=== PATIENT | male | born 1970 | race Caucasian/White ===

== ENCOUNTER 2017-10-16 12:25 | Inpatient (IN) | payer OTHER ==
[2017-10-16 13:03] VITALS: BMI 30.7
--- NOTE | 2017-10-16 16:51 | HP ---
COWS - Scale Resting Pulse: 1= [place] 81-100 Sweatin=Flushed/Facial Moisture Restless Observation: 3= Extraneous Movement Pupil Size: 0= Normal to Room Light Bone or Joint Aches: 4=Acute Joint/Muscle Pain Runny Nose/ Eye Tearin= None GI Upset > 30mins: 1= Stomach Cramp Tremor Observation: 1= Tremor [place], Not Seen Yawning Observation: 0= None Anxiety or Irritability: 2=Irritable/Anxious Goose Flesh Skin: 0=Smooth Skin COWS Score: 14 Admission [facility] Chief Complaint: WITHDRAWAL SX FROM HEROIN AND STREET METHADONE Allergies/Adverse Reactions: Allergies Allergy/AdvReac Type Severity Reaction Status Date / Time No Known Allergies Allergy Verified 10/16/17 15:45 History of Present Illness: 47 Y/O H/MALE WITH A HX OF HEROIN AND STREET METHADONE DEPENDENCE SEEKING DETOX TX. PT STAES HE WENT TO A HOSPITAL ER IN [place] A DAY OR TWO AGO FOR LEFT LEG PAIN AND WAS GIVEN XARELTO #2 TABS. PT REPORTS HE LATER WAS AT [facility] ON 10/14/17 TO 10/15/17 FOR LEFT LEG PAIN-DX DVT. PT IS CURRENTLY ON ELIQUIS 10 MG PO Q12H X 7 DAYS; THEN ELOQUIS 5 MG PO Q12H. PT STATES HE WAS MEDICATED WITH ELOQIUS AT [facility] THIS MORNING. PT HAS HIS RX IN [facility] AND WILL INSPECTOR AND MENDER THE REQUIRED PROTOCOL FOR ELIQUIS FROM [facility] AFTER DETOX. PT WANTS TO FOLLOW UP WITH HIS DOCTOR AFTER DETOX FOR MEDICAL MANAGEMENT AFTER DETOX. PT HAS SOME APPOINTMENTS SET UP FOR 10/24/17. Exam Limitations: No Limitations - Ebola screening Have you traveled outside of the country in the last 21 days: No Have you had contact with anyone from an Ebola affected area: No Have you been sick,other than usual withdrawal symptoms: No Do you have a fever: No - Review of Systems Constitutional: Chills, Night Sweats, Changes in sleep EENT: reports: Blurred Vision (WEARS GLASSES), Tearing, Nose Congestion, Dental Problems (MISSING TEETH) Respiratory: reports: No Symptoms reported Cardiac: reports: No Symptoms Reported GI: reports: Constipated, Diarrhea, Nausea, Poor Fluid Intake, Vomiting, Indigestion (GERD HX-NEXIUM) : reports: No Symptoms Reported Musculoskeletal: reports: Back Pain, Joint Pain, Muscle Pain Integumentary: reports: Dryness, Erythema (DUE TO DVT) Neuro: reports: Numbness, Tingling, Unsteady Gait (SOMETIMES) Endocrine: reports: No Symptoms Reported Hematology: reports: No Symptoms Reported Psychiatric: reports: Anxious Other Systems: Reviewed and Negative Patient History - Patient Medical History Hx Anemia: No Hx Asthma: No Hx Chronic Obstructive Pulmonary Disease (COPD): No Hx Cardiac Disorders: No Hx Hypertension: No Hx Hypercholesterolemia: Yes (HIGH TG--ON SIMVASTATIN 20 MG BUT NOT TAKEN FOR A LONG TIME.) HX Cerebrovascular Accident: No Hx Seizures: No Hx Diabetes: No Hx Gastrointestinal Disorders: Yes (GERD-NEXIUM) Hx Genitourinary Disorders: No Hx Sexually Transmitted Disorders: No (DENIES) Hx Renal Disease (ESRD): No Hx Thyroid Disease: No Hx Human Immunodeficiency Virus (HIV): No (NEGATIVE HX) Hx Hepatitis C: No Hx Depression: No Hx Suicide Attempt: No (DENIES S/I) Hx Bipolar Disorder: No Hx Schizophrenia: No - Patient Surgical History Past Surgical History: No Hx Neurologic Surgery: No Hx Cataract Extraction: No Hx Cardiac Surgery: No Hx Lung Surgery: No Hx Breast Surgery: No Hx Breast Biopsy: No Hx Abdominal Surgery: No Hx Appendectomy: No Hx Cholecystectomy: No Hx Genitourinary Surgery: No Hx Orthopedic Surgery: No Anesthesia Reaction: No - PPD History Previous Implant?: Yes Documented Results: Negative w/o proof Implanted On Prior R Admission?: No PPD to be Administered?: Yes - Reproductive History Patient is a Female of Child Bearing Age (11 -55 yrs old): Yes (MALE) - Smoking Cessation Smoking history: Current every day smoker Have you smoked in the past 12 months: Yes Aproximately how many cigarettes per day: 20 Hx Chewing Tobacco Use: No Initiated information on smoking cessation: Yes 'Breaking Loose' booklet given: 10/16/17 - Substance & Tx. History Hx Alcohol Use: Yes (OCCASIONAL BEER) Hx Substance Use: Yes (HEROIN/STREET METHADONE) Substance Use Type: Heroin Hx Substance Use Treatment: Yes (LAST TX IN [facility]) - Substances Abused Heroin Route: Inhalation Frequency: Daily Amount used: 3 bundles daily ($240) Age of first use: 37 Date of Last Use: 10/15/17 Non-Rx Methadone Route: Oral Frequency: 3-6 times per week Amount used: 70mg when used Age of first use: 47 Date of Last Use: 10/15/17 Family Disease History - Family Disease History Family Disease History: Diabetes: Grandparent, Heart Disease: Father (HTN; RUPTURED AORTA-), CA: Mother (STOMACH CA-), Other: Father [facility] - Vital Signs Vital Signs: Vital Signs - 24 hr 10/16/17 12:58 Temperature 98.7 F Pulse Rate 92 H Respiratory 20 Rate Blood Pressure 118/78 - Physical General Appearance: Yes: Moderate Distress, Irritable, Anxious HEENTM: Yes: EOMI, Normocephalic, KESHAV, Pharynx Normal Respiratory: Yes: Chest Non-Tender, Lungs Clear, Normal Breath Sounds, No Respiratory Distress Neck: Yes: Supple, Trachea in good position Breast: Yes: Breast Exam Deferred Cardiology: Yes: Regular Rhythm, Regular Rate, S1, S2 Abdominal: Yes: Normal Bowel Sounds, Non Tender Genitourinary: Yes: Other (N/C) Back: Yes: Within Normal Limits Musculoskeletal: Yes: full range of Motion, Gait Steady Extremities: Yes: Normal Range of Motion, Swelling, Calf Tenderness (RIGHT), Erythema, Inflammation Neurological: Yes: as400 developer II-XII NML intact, Fully Oriented, Alert, Motor Strength 5/5 Integumentary: Yes: Dry, Warm Lymphatic: Yes: Within Normal Limits - Diagnostic (1) Opioid dependence with withdrawal Current Visit: Yes Status: Acute (2) DVT (deep venous thrombosis) Current Visit: Yes Status: Acute Qualifiers: DVT location: lower extremity Laterality: left Comment: HOSPITALIZED 10/14/17 TO 10/15/17 FOR DVT AT [facility]. Cle[facility] for Admission [facility] - Detox or Rehab [facility] Level of Care: Medically Managed Detox Regimen/Protocol: Methadone [facility] Breath Alcohol Content Breath Alcohol Content: 0 Urine Drug Screen - Results Drug Screen Negative: No Urine Drug Screen Results: RUFUS-Cocaine, OPI-Opiates, MET-Methamphetamine, MTD- Methadone
[2017-10-16] MEDS ORDERED: guaiFENesin/D-METHORPHAN HB 10 ML UNIT-DOSE CUPS PO PRN (17:22)
[2017-10-16] MEDS ORDERED: MAG HYDROX/AL HYDROX/SIMETH 30 ML UNIT-DOSE CUP PO PRN (17:22)
[2017-10-16] MEDS ORDERED: P-EPHED 60MG/TRIPROLIDI 2.5MG TABLET PO PRN (17:22)
[2017-10-16] MEDS ORDERED: LOPERAMIDE HCL 2 MG CAPSULE PO PRN (17:22)
[2017-10-16] MEDS ORDERED: MAGNESIUM CITRATE 300 ML BOTTLE PO PRN (17:22)
[2017-10-16] MEDS ORDERED: NICOTINE POLACRILEX 4 MG GUM BC PRN (17:22)
[2017-10-16] MEDS ORDERED: MENTHOL/PHENOL 1 EACH UD MM PRN (17:22)
[2017-10-16] MEDS ORDERED: IBUPROFEN 400 MG TABLET (FP) PO PRN (17:22)
[2017-10-16] MEDS ORDERED: MAGNESIUM HYDROX 2400MG/30ML ORAL SUSPENSION 30 ML CUP PO PRN (17:22)
[2017-10-16] MEDS ORDERED: ASPIRIN 81 MG CHEWABLE TABLETS PO ONE (17:57)
[2017-10-16] MEDS ORDERED: METHADONE HCL 10 MG TABLET (FOR DETOX USE ONLY) PO ONE ×2 (19:15→23:00)
[2017-10-16] MEDS ORDERED: ASPIRIN COATED 81 MG TABLET.EC ONE (19:48)
[2017-10-16] MEDS: diazePAM 5 MG TABLET PO PRN (19:53)
[2017-10-16] MEDS: NICOTINE 21 MG/24 HOURS TOPICAL PATCH TD SCH (19:56)
[2017-10-16] MEDS ORDERED: MELATONIN 5 MG TABLETS PO PRN (22:00)
[2017-10-16] MEDS: CYCLOBENZAPRINE HCL 10 MG TABLET (FP) PO SCH (22:09)
[2017-10-16] MEDS: THIAMINE HCL 100 MG TABLET (FP) PO SCH (22:09)
[2017-10-16] MEDS: APIXABAN 5 MG TABLET PO SCH (22:10)
[2017-10-17] MEDS: diazePAM 5 MG TABLET PO PRN ×4 (05:14→20:10)
[2017-10-17] MEDS: CYCLOBENZAPRINE HCL 10 MG TABLET (FP) PO SCH ×3 (05:14→22:09)
[2017-10-17 08:13] LABS: URINE APPEARANCE TURBID; URINE BILIRUBIN NEGATIVE (<2.0 mg/dL); URINE GLUCOSE (UA) NEGATIVE (NEGATIVE); URINE KETONE NEGATIVE (NEGATIVE); URINE LEUK ESTERASE NEGATIVE (NEGATIVE); URINE NITRITE NEGATIVE (NEGATIVE); URINE PROTEIN NEGATIVE (NEGATIVE); URINE UROBILINOGEN NEGATIVE mg/dL (0.2-1.0)
[2017-10-17 08:14] LABS: URINE COLOR DK YELLOW
[2017-10-17 09:56] LABS: HEMATOCRIT 40.5 % (35.4-49); MCH 33.4 pg (25.7-33.7); MCHC 34.6 g/dl (32.0-35.9); MEAN CELL VOLUME 96.4 fl (80-96); PLATELET COUNT 158 K/MM3 (134-434); WHITE BLOOD COUNT 5.9 K/mm3 (4.0-10.0)
[2017-10-17] MEDS ORDERED: APIXABAN 5 MG TABLET PO SCH (10:00)
[2017-10-17] MEDS ORDERED: METHADONE HCL 10 MG TABLET (FOR DETOX USE ONLY) PO ONE (10:00)
[2017-10-17] MEDS: APIXABAN 5 MG TABLET PO SCH ×2 (10:10→22:09)
[2017-10-17] MEDS: PRENATAL VITAMINS W/ FOLIC ACID TABLET (FP) PO SCH (10:10)
[2017-10-17] MEDS: NICOTINE 21 MG/24 HOURS TOPICAL PATCH TD SCH (10:10)
[2017-10-17 10:37] LABS: CALCIUM 8.4 mg/dL (8.5-10.1); CHLORIDE 106 mmol/L (98-107); POTASSIUM 4.1 mmol/L (3.5-5.1); SODIUM 141 mmol/L (136-145)
[2017-10-17 10:42] LABS: ALBUMIN 3.5 g/dl (3.4-5.0); ALK PHOS 67 U/L (45-117); ANION GAP 10 (8-16); BILIRUBIN,TOTAL 0.4 mg/dL (0.2-1.0); BLOOD UREA NITROGEN 18 mg/dL (7-18); CO2 25 mmol/L (21-32); CREATININE 1.1 mg/dL (0.7-1.3); GLUCOSE,RANDOM 119 mg/dL (74-106); SGOT/AST 30 U/L (15-37); SGPT/ALT 33 U/L (12-78); TOT PROT 6.8 g/dl (6.4-8.2)
--- NOTE | 2017-10-17 10:59 | PN ---
S COWS - Scale Resting Pulse: 1= [place] 81-100 Sweatin= Chills/Flushing Restless Observation: 3= Extraneous Movement Pupil Size: 0= Normal to Room Light Bone or Joint Aches: 4=Acute Joint/Muscle Pain Runny Nose/ Eye Tearin= None GI Upset > 30mins: 0= None Tremor Observation of Outstretched Hands: 2= Slight Tremor Visible Yawning Observation: 1= 1-2x During Session Anxiety or Irritability: 2=Irritable/Anxious Goose Flesh Skin: 0=Smooth Skin COWS Score: 14 S Progress Note (SOAP) Subjective: PT SEEN IN BED LYING COMFORTABLY DURING ROUNDS. LEGS ELEVATED. REPORTS LEFT LEG PAIN SIGNIFICANTLY DIMINISHED--ON A SCALE OF 2. REPORTS DETOX PROCEEDING WELL WITH MEDICATION TAPER DELIVERING GOOD EFFECT. DENIES SOB, COUGH OR DIZZINESS. Objective: 10/17/17 10:59 Vital Signs Temperature 96.4 F L 10/17/17 09:05 Pulse Rate 81 10/17/17 09:05 Respiratory Rate 16 10/17/17 09:05 Blood Pressure 96/59 10/17/17 09:05 O2 Sat by Pulse Oximetry (%) Laboratory Last Values WBC 5.9 K/mm3 (4.0-10.0) 10/17/17 06:00 RBC 4.20 M/mm3 (4.00-5.60) 10/17/17 06:00 Hgb 14.0 GM/dL (11.7-16.9) 10/17/17 06:00 Hct 40.5 % (35.4-49) 10/17/17 06:00 MCV 96.4 fl (80-96) H 10/17/17 06:00 MCH 33.4 pg (25.7-33.7) 10/17/17 06:00 MCHC 34.6 g/dl (32.0-35.9) 10/17/17 06:00 RDW 13.0 % (11.9-15.9) 10/17/17 06:00 Plt Count 158 K/MM3 (134-434) 10/17/17 06:00 MPV 10.0 fl (7.5-11.1) 10/17/17 06:00 Sodium 141 mmol/L (136-145) 10/17/17 06:00 Potassium 4.1 mmol/L (3.5-5.1) 10/17/17 06:00 Chloride 106 mmol/L (98-107) 10/17/17 06:00 Carbon Dioxide 25 mmol/L (21-32) 10/17/17 06:00 Anion Gap 10 (8-16) 10/17/17 06:00 BUN 18 mg/dL (7-18) 10/17/17 06:00 Creatinine 1.1 mg/dL (0.7-1.3) 10/17/17 06:00 Creat Clearance w eGFR > 60 (>60) 10/17/17 06:00 Random Glucose 119 mg/dL (74-106) H 10/17/17 06:00 Calcium 8.4 mg/dL (8.5-10.1) L 10/17/17 06:00 Total Bilirubin 0.4 mg/dL (0.2-1.0) 10/17/17 06:00 AST 30 U/L (15-37) 10/17/17 06:00 ALT 33 U/L (12-78) 10/17/17 06:00 Alkaline Phosphatase 67 U/L (45-117) 10/17/17 06:00 Total Protein 6.8 g/dl (6.4-8.2) 10/17/17 06:00 Albumin 3.5 g/dl (3.4-5.0) 10/17/17 06:00 Urine Color Dk yellow 10/16/17 07:30 Urine Appearance Turbid 10/16/17 07:30 Urine pH 5.0 (5.0-8.0) 10/16/17 07:30 Ur Specific [place] 1.023 (1.001-1.035) 10/16/17 07:30 Urine Protein Negative (NEGATIVE) 10/16/17 07:30 Urine Glucose (UA) Negative (NEGATIVE) 10/16/17 07:30 Urine Ketones Negative (NEGATIVE) 10/16/17 07:30 Urine Blood Negative (NEGATIVE) 10/16/17 07:30 Urine Nitrite Negative (NEGATIVE) 10/16/17 07:30 Urine Bilirubin Negative (<2.0 mg/dL) 10/16/17 07:30 Urine Urobilinogen Negative mg/dL (0.2-1.0) 10/16/17 07:30 Ur Leukocyte Esterase Negative (NEGATIVE) 10/16/17 07:30 LEFT LEG:SWELLING/REDNESS /PAIN SIGNIFICANTLY DIMINISHED. Assessment: 10/17/17 10:59 WITHDRAWAL SX Plan: CONTINUE DETOX. INCREASE PO FLUIDS.
[2017-10-17] MEDS ORDERED: COLLOIDAL OATMEAL 1 BAR EACH TP PRN (17:53)
[2017-10-17] MEDS: THIAMINE HCL 100 MG TABLET (FP) PO SCH (22:09)
[2017-10-18] MEDS: diazePAM 5 MG TABLET PO PRN ×3 (01:37→22:15)
[2017-10-18] MEDS: ACETAMINOPHEN 325 MG TABLET (FP) PO PRN (01:37)
[2017-10-18] MEDS: CYCLOBENZAPRINE HCL 10 MG TABLET (FP) PO SCH ×3 (05:06→22:15)
[2017-10-18] MEDS ORDERED: METHADONE HCL 5 MG TABLET (FOR DETOX USE ONLY) PO ONE (10:00)
[2017-10-18] MEDS: APIXABAN 5 MG TABLET PO SCH ×2 (10:19→22:15)
[2017-10-18] MEDS: NICOTINE 21 MG/24 HOURS TOPICAL PATCH TD SCH (10:19)
[2017-10-18] MEDS: PRENATAL VITAMINS W/ FOLIC ACID TABLET (FP) PO SCH (10:19)
--- NOTE | 2017-10-18 10:56 | PN ---
BHS COWS - Scale Resting Pulse: 1= [place] 81-100 Sweatin= Chills/Flushing Restless Observation: 3= Extraneous Movement Pupil Size: 2= Moderately Dilated Bone or Joint Aches: 4=Acute Joint/Muscle Pain Runny Nose/ Eye Tearin= None GI Upset > 30mins: 0= None Tremor Observation of Outstretched Hands: 2= Slight Tremor Visible Yawning Observation: 0= None Anxiety or Irritability: 2=Irritable/Anxious Goose Flesh Skin: 0=Smooth Skin COWS Score: 15 BHS Progress Note (SOAP) Subjective: ANXIETY,SWEATS,SLIGHT LEG PAIN. LITTLE OR NO SWELLING OR REDNESS Objective: 10/18/17 10:55 Vital Signs Temperature 96.9 F L 10/18/17 09:15 Pulse Rate 82 10/18/17 09:15 Respiratory Rate 18 10/18/17 09:15 Blood Pressure 99/54 10/18/17 09:15 O2 Sat by Pulse Oximetry (%) Laboratory Last Values WBC 5.9 K/mm3 (4.0-10.0) 10/17/17 06:00 RBC 4.20 M/mm3 (4.00-5.60) 10/17/17 06:00 Hgb 14.0 GM/dL (11.7-16.9) 10/17/17 06:00 Hct 40.5 % (35.4-49) 10/17/17 06:00 MCV 96.4 fl (80-96) H 10/17/17 06:00 MCH 33.4 pg (25.7-33.7) 10/17/17 06:00 MCHC 34.6 g/dl (32.0-35.9) 10/17/17 06:00 RDW 13.0 % (11.9-15.9) 10/17/17 06:00 Plt Count 158 K/MM3 (134-434) 10/17/17 06:00 MPV 10.0 fl (7.5-11.1) 10/17/17 06:00 Sodium 141 mmol/L (136-145) 10/17/17 06:00 Potassium 4.1 mmol/L (3.5-5.1) 10/17/17 06:00 Chloride 106 mmol/L (98-107) 10/17/17 06:00 Carbon Dioxide 25 mmol/L (21-32) 10/17/17 06:00 Anion Gap 10 (8-16) 10/17/17 06:00 BUN 18 mg/dL (7-18) 10/17/17 06:00 Creatinine 1.1 mg/dL (0.7-1.3) 10/17/17 06:00 Creat Clearance w eGFR > 60 (>60) 10/17/17 06:00 Random Glucose 119 mg/dL (74-106) H 10/17/17 06:00 Calcium 8.4 mg/dL (8.5-10.1) L 10/17/17 06:00 Total Bilirubin 0.4 mg/dL (0.2-1.0) 10/17/17 06:00 AST 30 U/L (15-37) 10/17/17 06:00 ALT 33 U/L (12-78) 10/17/17 06:00 Alkaline Phosphatase 67 U/L (45-117) 10/17/17 06:00 Total Protein 6.8 g/dl (6.4-8.2) 10/17/17 06:00 Albumin 3.5 g/dl (3.4-5.0) 10/17/17 06:00 Urine Color Dk yellow 10/16/17 07:30 Urine Appearance Turbid 10/16/17 07:30 Urine pH 5.0 (5.0-8.0) 10/16/17 07:30 Ur Specific [place] 1.023 (1.001-1.035) 10/16/17 07:30 Urine Protein Negative (NEGATIVE) 10/16/17 07:30 Urine Glucose (UA) Negative (NEGATIVE) 10/16/17 07:30 Urine Ketones Negative (NEGATIVE) 10/16/17 07:30 Urine Blood Negative (NEGATIVE) 10/16/17 07:30 Urine Nitrite Negative (NEGATIVE) 10/16/17 07:30 Urine Bilirubin Negative (<2.0 mg/dL) 10/16/17 07:30 Urine Urobilinogen Negative mg/dL (0.2-1.0) 10/16/17 07:30 Ur Leukocyte Esterase Negative (NEGATIVE) 10/16/17 07:30 RPR Titer Nonreactive (NONREACTIVE) 10/17/17 06:00 HIV 1&2 Antibody Screen Negative 10/17/17 06:00 HIV P24 Antigen Negative 10/17/17 06:00 Assessment: 10/18/17 10:55 WITHDRAWAL SX Plan: CONTINUE DETOX CONTINUE TO ELEVATE LEG IN BED INCREASE PO FLUIDS
[2017-10-18] MEDS: THIAMINE HCL 100 MG TABLET (FP) PO SCH (22:15)
[2017-10-19] MEDS: ACETAMINOPHEN 325 MG TABLET (FP) PO PRN ×2 (01:05→22:20)
[2017-10-19] MEDS: CYCLOBENZAPRINE HCL 10 MG TABLET (FP) PO SCH ×3 (05:16→22:18)
[2017-10-19] MEDS: diazePAM 5 MG TABLET PO PRN ×2 (05:16→09:54)
[2017-10-19] MEDS: APIXABAN 5 MG TABLET PO SCH ×2 (09:54→22:18)
[2017-10-19] MEDS: PRENATAL VITAMINS W/ FOLIC ACID TABLET (FP) PO SCH (09:54)
[2017-10-19] MEDS: NICOTINE 21 MG/24 HOURS TOPICAL PATCH TD SCH (09:56)
[2017-10-19] MEDS ORDERED: METHADONE HCL 5 MG TABLET (FOR DETOX USE ONLY) PO ONE (10:00)
--- NOTE | 2017-10-19 12:11 | PN ---
BHS Progress Note (SOAP) Subjective: SLIGHT ANXIETY,SWEATS,FATIGUE. PT SEEN LYING IN BED. NAD. Objective: 10/19/17 12:10 Vital Signs Temperature 97.0 F L 10/19/17 09:55 Pulse Rate 76 10/19/17 09:55 Respiratory Rate 18 10/19/17 09:55 Blood Pressure 106/69 10/19/17 09:55 O2 Sat by Pulse Oximetry (%) Laboratory Tests 10/16/17 10/17/17 10/17/17 07:30 06:00 06:00 WBC 5.9 RBC 4.20 Hgb 14.0 Hct 40.5 MCV 96.4 H MCH 33.4 MCHC 34.6 RDW 13.0 Plt Count 158 MPV 10.0 Sodium Potassium Chloride Carbon Dioxide Anion Gap BUN Creatinine Creat Clearance w eGFR Random Glucose Calcium Total Bilirubin AST ALT Alkaline Phosphatase Total Protein Albumin Urine Color Dk yellow Urine Appearance Turbid Urine pH 5.0 Ur Specific [place] 1.023 Urine Protein Negative Urine Glucose (UA) Negative Urine Ketones Negative Urine Blood Negative Urine Nitrite Negative Urine Bilirubin Negative Urine Urobilinogen Negative Ur Leukocyte Esterase Negative RPR Titer HIV 1&2 Antibody Screen Negative HIV P24 Antigen Negative 10/17/17 10/17/17 06:00 06:00 WBC RBC Hgb Hct MCV MCH MCHC RDW Plt Count MPV Sodium 141 Potassium 4.1 Chloride 106 Carbon Dioxide 25 Anion Gap 10 BUN 18 Creatinine 1.1 Creat Clearance w eGFR > 60 Random Glucose 119 H Calcium 8.4 L Total Bilirubin 0.4 AST 30 ALT 33 Alkaline Phosphatase 67 Total Protein 6.8 Albumin 3.5 Urine Color Urine Appearance Urine pH Ur Specific [place] Urine Protein Urine Glucose (UA) Urine Ketones Urine Blood Urine Nitrite Urine Bilirubin Urine Urobilinogen Ur Leukocyte Esterase RPR Titer Nonreactive HIV 1&2 Antibody Screen HIV P24 Antigen Assessment: 10/19/17 12:10 WITHDRAWAL SX Plan: CONTINUE DETOX
[2017-10-19] MEDS: THIAMINE HCL 100 MG TABLET (FP) PO SCH (22:18)
[2017-10-20] MEDS: CYCLOBENZAPRINE HCL 10 MG TABLET (FP) PO SCH ×3 (05:49→22:14)
[2017-10-20] MEDS: ACETAMINOPHEN 325 MG TABLET (FP) PO PRN ×2 (05:56→22:54)
[2017-10-20] MEDS ORDERED: METHADONE HCL 10 MG TABLET (FOR DETOX USE ONLY) PO ONE (10:00)
[2017-10-20] MEDS: APIXABAN 5 MG TABLET PO SCH ×2 (10:14→22:13)
[2017-10-20] MEDS: NICOTINE 21 MG/24 HOURS TOPICAL PATCH TD SCH (10:14)
[2017-10-20] MEDS: PRENATAL VITAMINS W/ FOLIC ACID TABLET (FP) PO SCH (10:15)
--- NOTE | 2017-10-20 12:58 | PN ---
BHS Progress Note (SOAP) Subjective: Sweating, Body Aches, Fatigue,Stomach Cramping. Objective: PATIENT A & O X 2 (UNCERTAIN ABOUT CURRENT DAY / DATE). PATIENT OBSERVED AMBULATING ON UNIT. NO ACUTE DISTRESS. 10/20/17 13:00 Vital Signs Temperature 98 F 10/20/17 09:15 Pulse Rate 60 10/20/17 09:15 Respiratory Rate 20 10/20/17 09:15 Blood Pressure 110/72 10/20/17 09:15 O2 Sat by Pulse Oximetry (%) Laboratory Tests 10/16/17 10/17/17 10/17/17 07:30 06:00 06:00 WBC 5.9 RBC 4.20 Hgb 14.0 Hct 40.5 MCV 96.4 H MCH 33.4 MCHC 34.6 RDW 13.0 Plt Count 158 MPV 10.0 Sodium Potassium Chloride Carbon Dioxide Anion Gap BUN Creatinine Creat Clearance w eGFR Random Glucose Calcium Total Bilirubin AST ALT Alkaline Phosphatase Total Protein Albumin Urine Color Dk yellow Urine Appearance Turbid Urine pH 5.0 Ur Specific [place] 1.023 Urine Protein Negative Urine Glucose (UA) Negative Urine Ketones Negative Urine Blood Negative Urine Nitrite Negative Urine Bilirubin Negative Urine Urobilinogen Negative Ur Leukocyte Esterase Negative RPR Titer HIV 1&2 Antibody Screen Negative HIV P24 Antigen Negative 10/17/17 10/17/17 06:00 06:00 WBC RBC Hgb Hct MCV MCH MCHC RDW Plt Count MPV Sodium 141 Potassium 4.1 Chloride 106 Carbon Dioxide 25 Anion Gap 10 BUN 18 Creatinine 1.1 Creat Clearance w eGFR > 60 Random Glucose 119 H Calcium 8.4 L Total Bilirubin 0.4 AST 30 ALT 33 Alkaline Phosphatase 67 Total Protein 6.8 Albumin 3.5 Urine Color Urine Appearance Urine pH Ur Specific [place] Urine Protein Urine Glucose (UA) Urine Ketones Urine Blood Urine Nitrite Urine Bilirubin Urine Urobilinogen Ur Leukocyte Esterase RPR Titer Nonreactive HIV 1&2 Antibody Screen HIV P24 Antigen LABS NOTED. Assessment: 10/20/17 13:01 WITHDRAWAL SYMPTOMS. Plan: CONTINUE DETOX. INCREASE DAILY PO FLUID INTAKE. PATIENT SCHEDULED FOR D/C TOMORROW.
[2017-10-20] MEDS: THIAMINE HCL 100 MG TABLET (FP) PO SCH (22:13)
[2017-10-21] MEDS: ACETAMINOPHEN 325 MG TABLET (FP) PO PRN (05:44)
[2017-10-21] MEDS: CYCLOBENZAPRINE HCL 10 MG TABLET (FP) PO SCH (05:44)
[2017-10-21] MEDS ORDERED: METHADONE HCL 5 MG TABLET (FOR DETOX USE ONLY) PO ONE (06:00)
[2017-10-21 06:24] VITALS: BP 102/73; PULSE 85; TEMP 97
--- NOTE | 2017-10-21 15:39 | DS ---
[facility] Detox Discharge Summary Admission Date: 10/16/17 Discharge Date: 10/21/17 - History Present History: Opioid Dependence Additional Comments: DETOX COMPLETED. ALERT O X 3. NAD. FOLLOW UP AT [facility] FOR PREVIOUSLY SCHEDULED APPOINMENTS. Pertinent Past History: PLEASE SEE DX BELOW - Physical Exam Results Vital Signs: Vital Signs Temperature 97.0 F L 10/21/17 06:23 Pulse Rate 85 10/21/17 06:23 Respiratory Rate 18 10/21/17 06:30 Blood Pressure 102/73 10/21/17 06:23 O2 Sat by Pulse Oximetry (%) Pertinent Admission Physical Exam Findings: WITHDRAWAL SX Laboratory Tests 10/16/17 10/17/17 10/17/17 07:30 06:00 06:00 WBC 5.9 RBC 4.20 Hgb 14.0 Hct 40.5 MCV 96.4 H MCH 33.4 MCHC 34.6 RDW 13.0 Plt Count 158 MPV 10.0 Sodium Potassium Chloride Carbon Dioxide Anion Gap BUN Creatinine Creat Clearance w eGFR Random Glucose Calcium Total Bilirubin AST ALT Alkaline Phosphatase Total Protein Albumin Urine Color Dk yellow Urine Appearance Turbid Urine pH 5.0 Ur Specific [place] 1.023 Urine Protein Negative Urine Glucose (UA) Negative Urine Ketones Negative Urine Blood Negative Urine Nitrite Negative Urine Bilirubin Negative Urine Urobilinogen Negative Ur Leukocyte Esterase Negative RPR Titer HIV 1&2 Antibody Screen Negative HIV P24 Antigen Negative 10/17/17 10/17/17 06:00 06:00 WBC RBC Hgb Hct MCV MCH MCHC RDW Plt Count MPV Sodium 141 Potassium 4.1 Chloride 106 Carbon Dioxide 25 Anion Gap 10 BUN 18 Creatinine 1.1 Creat Clearance w eGFR > 60 Random Glucose 119 H Calcium 8.4 L Total Bilirubin 0.4 AST 30 ALT 33 Alkaline Phosphatase 67 Total Protein 6.8 Albumin 3.5 Urine Color Urine Appearance Urine pH Ur Specific [place] Urine Protein Urine Glucose (UA) Urine Ketones Urine Blood Urine Nitrite Urine Bilirubin Urine Urobilinogen Ur Leukocyte Esterase RPR Titer Nonreactive HIV 1&2 Antibody Screen HIV P24 Antigen - Treatment Hospital Course: Detox Protocol Followed, Detoxed Safely, Responded well, Discharged Condition Good, Rehab Referral Accepted Patient has Accepted a Rehab Referral to: [facility] - Medication Discharge Medications: Ambulatory Orders Apixaban [Eliquis] 5 mg PO Q12H 10/16/17 Famotidine 20 mg PO BID 10/16/17 Naproxen 375 mg PO BID PRN 10/16/17 Rivaroxaban [Xarelto -] 15 mg PO DAILY 10/16/17 Simvastatin 20 mg PO HS 10/16/17 Tizanidine HCl 4 mg PO HS PRN 10/16/17 Apixaban [Eliquis -] 10 mg PO Q12H 30 Days #60 tablet 10/20/17 - Diagnosis (1) Opioid dependence with withdrawal Status: Acute (2) DVT (deep venous thrombosis) Status: Acute Qualifiers: DVT location: lower extremity Affected thrombotic vein of extremity: unspecified vein of extremity Chronicity: acute Laterality: left Qualified Code(s): I82.402 - Acute embolism and thrombosis of unspecified deep veins of left lower extremity (3) GERD (gastroesophageal reflux disease) Status: Chronic Qualifiers: Esophagitis presence: esophagitis presence not specified Qualified Code(s) : K21.9 - Gastro-esophageal reflux disease without esophagitis (4) Hx of endogenous hypertriglyceridemia Status: Suspected (5) Use of cane as ambulatory aid Status: Acute - AMA Did Patient Leave Against Medical Advice: No
--- NOTE | 2017-10-21 15:45 | PN ---
BHS Progress Note (SOAP) Subjective: DETOX COMPLETED. ALERT O X 3. PT IS GOING HOME TODAY TO [facility]. PT INSTRUCTED TO FOLLOW UP WITH MEDICAL APPOINTMENT HE PREVIOUSLY SCHEDULED FOR 10/24/17. PT DENIES PAIN ON LEFT LEG. AMBULATING WELL WITH NO LIMPING. Objective: 10/21/17 15:42 Vital Signs Temperature 97.0 F L 10/21/17 06:23 Pulse Rate 85 10/21/17 06:23 Respiratory Rate 18 10/21/17 06:30 Blood Pressure 102/73 10/21/17 06:23 O2 Sat by Pulse Oximetry (%) Laboratory Tests 10/16/17 10/17/17 10/17/17 07:30 06:00 06:00 WBC 5.9 RBC 4.20 Hgb 14.0 Hct 40.5 MCV 96.4 H MCH 33.4 MCHC 34.6 RDW 13.0 Plt Count 158 MPV 10.0 Sodium Potassium Chloride Carbon Dioxide Anion Gap BUN Creatinine Creat Clearance w eGFR Random Glucose Calcium Total Bilirubin AST ALT Alkaline Phosphatase Total Protein Albumin Urine Color Dk yellow Urine Appearance Turbid Urine pH 5.0 Ur Specific [place] 1.023 Urine Protein Negative Urine Glucose (UA) Negative Urine Ketones Negative Urine Blood Negative Urine Nitrite Negative Urine Bilirubin Negative Urine Urobilinogen Negative Ur Leukocyte Esterase Negative RPR Titer HIV 1&2 Antibody Screen Negative HIV P24 Antigen Negative 10/17/17 10/17/17 06:00 06:00 WBC RBC Hgb Hct MCV MCH MCHC RDW Plt Count MPV Sodium 141 Potassium 4.1 Chloride 106 Carbon Dioxide 25 Anion Gap 10 BUN 18 Creatinine 1.1 Creat Clearance w eGFR > 60 Random Glucose 119 H Calcium 8.4 L Total Bilirubin 0.4 AST 30 ALT 33 Alkaline Phosphatase 67 Total Protein 6.8 Albumin 3.5 Urine Color Urine Appearance Urine pH Ur Specific [place] Urine Protein Urine Glucose (UA) Urine Ketones Urine Blood Urine Nitrite Urine Bilirubin Urine Urobilinogen Ur Leukocyte Esterase RPR Titer Nonreactive HIV 1&2 Antibody Screen HIV P24 Antigen Assessment: 10/21/17 15:42 MEDICALLY STABLE Plan: D/C PT TODAY PT TO FOLLOW UP WITH CLINIC MEDICAL APPOINTMENT AT [facility] ON 10/24/17 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
--- NOTE | 2017-10-22 10:47 | EKG ---
Test Reason : Blood Pressure : / mmHG Vent. Rate : 099 BPM Atrial Rate : 099 BPM P-R Int : 122 ms QRS Dur : 084 ms QT Int : 344 ms P-R-T Axes : 055 078 032 degrees QTc Int : 441 ms NORMAL SINUS RHYTHM POSSIBLE LEFT ATRIAL ENLARGEMENT BORDERLINE ECG NO PREVIOUS ECGS AVAILABLE Confirmed by ASHOK ESTRADA MD ([id number]) on 10/22/2017 10:47:02 AM Referred By: Confirmed By:ASHOK ESTRADA MD
== END 2017-10-21 08:52 | disposition home or self-care (01) | DRG 773 ==
LOC: YASAS 12:25 → Y3N 19:01
PROVIDERS: ADMIT Internal Medicine; ATTEND Internal Medicine
PROC: HZ2ZZZZ Detoxification Services for Substance Abuse Treatment (ICD-10-PCS; principal; 2017-10-16)
DX: F11.23 Opioid dependence with withdrawal (principal); F17.210 Nicotine dependence, cigarettes, uncomplicated; K21.9 Gastro-esophageal reflux disease without esophagitis; I82.402 Acute embolism and thrombosis of unspecified deep veins of left lower extremity; Z79.01 Long term (current) use of anticoagulants; R26.89 Other abnormalities of gait and mobility; Z99.89 Dependence on other enabling machines and devices; Z86.39 Personal history of other endocrine, nutritional and metabolic disease
CPT/HCPCS: 36415; 80053; 81003; 85027; 86593; 87389; 93005; 93010